=== PATIENT | female | born 1990 | race American Indian/Alaskan Native ===

== ENCOUNTER 2017-07-15 13:19 | Emergency (ER) | payer SELFPAY ==
--- NOTE | 2017-07-15 14:12 | Emergency Department Report ---
Stated Complaint: KNOT ON LEFT SIDE BACK/PAIN Time Seen by Provider: 07/15/17 14:09 - HPI History of Present Illness: PT c/o painful knot to L side of back - ROS Review of Systems: +"nerves be really bad" + chills - Exam Physical Exam: PT looks well, non toxic. PT appears to have large lipoma to back - no warmth or erythema noted to skin MSE screening note: Focused history and physical exam performed. Due to findings the following was ordered: ED Disposition for MSE Condition: Stable
[2017-07-15 14:13] VITALS: BP 128/81
[2017-07-15 15:06] LABS: Basophils % (Auto) 0.6 % (0.0-1.8); Eosinophils % (Auto) 1.4 % (0.0-4.3); Hematocrit 45.4 % (30.3-42.9); Hemoglobin 15.1 gm/dl (10.1-14.3); Mean Corpuscular HGB Conc 33 % (30-34); Mean Corpuscular Hemoglobin 34 pg (28-32); Mean Corpuscular Volume 101 fl (79-97); Platelet Count 321 K/mm3 (140-440); Red Blood Count 4.49 M/mm3 (3.65-5.03); Red Cell Distribution Width 13.7 % (13.2-15.2); White Blood Count 7.9 K/mm3 (4.5-11.0)
[2017-07-15 15:18] LABS: Alanine Aminotransferase 12 units/L (7-56); Albumin 4.7 g/dL (3.9-5); Albumin/Globulin Ratio 1.3 %; Alkaline Phosphatase 50 units/L (35-129); Anion Gap 19 mmol/L; BUN/Creatinine Ratio 13.33; Blood Urea Nitrogen 8 mg/dL (7-17); Calcium 9.8 mg/dL (8.4-10.2); Carbon Dioxide 26 mmol/L (22-30); Chloride 99.7 mmol/L (98-107); Glucose 96 mg/dL (65-100); Sodium 141 mmol/L (137-145); Total Protein 8.2 g/dL (6.3-8.2)
--- NOTE | 2017-07-15 17:11 | Emergency Department Report ---
- General Chief complaint: Skin/Abscess/Foreign Body Stated complaint: KNOT ON LEFT SIDE BACK/PAIN Time Seen by Provider: 07/15/17 14:09 Source: patient Mode of arrival: Ambulatory Limitations: No Limitations - History of Present Illness Initial comments: 27-year-old female past medical history none presents with complaint of 8 months of left-sided paraspinal soft mass. Patient states that it has been hurting which is why she came into the ER today. Denies fevers chills up or lower extremity paresthesias. Denies any abdominal pain. Patient is awake alert and oriented 3 not in acute distress. MD complaint: foreign body Onset/Timin -: month(s) Tetanus Up to Date: yes Location: back (left mid back) Severity: moderate Severity scale (0 -10): 7 Quality: aching, sharp Consistency: intermittent Improves with: none Worsens with: none Associated symptoms: denies other symptoms Treatments Prior to Arrival: none - Related Data Previous Rx's Medication Instructions Recorded Last Taken Type traMADol [Ultram 50 MG tab] 50 mg PO Q6HR PRN #10 tablet 06/17/16 Unknown Rx Acetaminophen/Codeine [Tylenol 1 tab PO Q6H PRN #12 tab 07/15/17 Unknown Rx /Codeine # 3 tab] Naproxen [Naprosyn TAB] 500 mg PO BID PRN #30 tablet 07/15/17 Unknown Rx Allergies Allergy/AdvReac Type Severity Reaction Status Date / Time No Known Allergies Allergy Verified 06/17/16 15:07 Abscess Boil HPI - HPI Chief Complaint: Skin/Abscess/Foreign Body Stated Complaint: KNOT ON LEFT SIDE BACK/PAIN Time Seen by Provider: 07/15/17 14:09 Home Medications: Previous Rx's Medication Instructions Recorded Last Taken Type traMADol [Ultram 50 MG tab] 50 mg PO Q6HR PRN #10 tablet 06/17/16 Unknown Rx Acetaminophen/Codeine [Tylenol 1 tab PO Q6H PRN #12 tab 07/15/17 Unknown Rx /Codeine # 3 tab] Naproxen [Naprosyn TAB] 500 mg PO BID PRN #30 tablet 07/15/17 Unknown Rx Allergies/Adverse Reactions: Allergies Allergy/AdvReac Type Severity Reaction Status Date / Time No Known Allergies Allergy Verified 06/17/16 15:07 ED Review of Systems ROS: Stated complaint: KNOT ON LEFT SIDE BACK/PAIN Other details as noted in HPI Constitutional: denies: chills, fever Eyes: denies: eye pain, eye discharge, vision change ENT: denies: ear pain, throat pain Respiratory: denies: cough, shortness of breath, wheezing Cardiovascular: denies: chest pain, palpitations Endocrine: no symptoms reported Gastrointestinal: denies: abdominal pain, nausea, diarrhea Genitourinary: denies: urgency, dysuria, discharge Musculoskeletal: as per HPI, back pain (left mid back pain). denies: joint swelling, arthralgia Skin: denies: rash, lesions Neurological: denies: headache, weakness, paresthesias Psychiatric: denies: anxiety, depression Hematological/Lymphatic: denies: easy bleeding, easy bruising ED Past Medical Hx - Past Medical History Previous Medical History?: Yes Additional medical history: vaginal delivery x 3 - Surgical History Past Surgical History?: No - Social History Smoking Status: Current Every Day Smoker Substance Use Type: Alcohol, Non Opiate Pain - Medications Home Medications: Home Medications Medication Instructions Recorded Confirmed Last Taken Type traMADol [Ultram 50 MG tab] 50 mg PO Q6HR PRN #10 tablet 06/17/16 Unknown Rx Acetaminophen/Codeine [Tylenol 1 tab PO Q6H PRN #12 tab 07/15/17 Unknown Rx /Codeine # 3 tab] Naproxen [Naprosyn TAB] 500 mg PO BID PRN #30 tablet 07/15/17 Unknown Rx ED Physical Exam - General Limitations: No Limitations General appearance: alert, in no apparent distress - Head Head exam: Present: atraumatic, normocephalic - Eye Eye exam: Present: normal appearance, PERRL, EOMI - ENT ENT exam: Present: mucous membranes moist - Neck Neck exam: Present: normal inspection - Respiratory Respiratory exam: Present: normal lung sounds bilaterally. Absent: respiratory distress - Cardiovascular Cardiovascular Exam: Present: regular rate, normal rhythm. Absent: systolic murmur, diastolic murmur, rubs, gallop - GI/Abdominal GI/Abdominal exam: Present: soft, normal bowel sounds - Extremities Exam Extremities exam: Present: normal inspection - Back Exam Back exam: Present: normal inspection, paraspinal tenderness (left sided paraspinal mass ~ 8-10Cm in diameter) - Neurological Exam Neurological exam: Present: alert, oriented X3, CN II-XII intact, normal gait - Psychiatric Psychiatric exam: Present: normal affect, normal mood - Skin Skin exam: Present: warm, dry, intact, normal color. Absent: rash ED Course Vital Signs 07/15/17 14:09 Temperature 98.7 F Pulse Rate 93 H Respiratory 20 Rate Blood Pressure 128/81 O2 Sat by Pulse 100 Oximetry ED Medical Decision Making - Lab Data Result diagrams: 07/15/17 14:26 07/15/17 14:26 - Medical Decision Making A/P: Left-sided paraspinal/subcutaneous lipoma 1-discussed with radiologist Dr. Beck 2-naproxen when necessary, Tylenol No. 3 when necessary 3-she has no cranial nerve deficits strength 5 out of 5 all extremities 4-pt referred to outpatient surgery and dermatology Critical care attestation.: If time is entered above; I have spent that time in minutes in the direct care of this critically ill patient, excluding procedure time. ED Disposition Clinical Impression: Lipoma of back Disposition: DC-01 TO HOME OR SELFCARE Is pt being admited?: No Does the pt Need Aspirin: No Condition: Stable Instructions: Lipoma (ED) Prescriptions: Acetaminophen/Codeine [Tylenol /Codeine # 3 tab] 1 tab PO Q6H PRN #12 tab PRN Reason: Pain Naproxen [Naprosyn TAB] 500 mg PO BID PRN #30 tablet PRN Reason: Pain Referrals: GUTIERREZ PURDY MD [Staff Physician] - 3-5 Days ZAIRA LESLIE MD [Staff Physician] - 3-5 Days [facility] [Provider Group] - 3-5 Days Forms: Accompanied Note, Work/School Release Form(ED) Time of Disposition: 18:40
[2017-07-15] MEDS: MORPHINE IV ONE (17:33)
[2017-07-15] MEDS: NACL 0.9% 1000 ML 1,000 ML IV ONE (17:33)
--- NOTE | 2017-07-15 18:17 | Cat Scan Report ---
FINAL REPORT PROCEDURE: CT THORACIC SPINE W CON TECHNIQUE: Computerized axial tomography of the thoracic spine was performed from lower cervical spine to the upper lumbar spine following the IV injection of iodinated nonionic contrast. HISTORY: left sided paraspinal mass, 10cm in diameter, hard COMPARISON: No prior studies are available for comparison. FINDINGS: The spine is unremarkable. No fracture or subluxation is seen. No lytic or blastic abnormalities are identified. Posterior elements appear intact. No evidence of paraspinal mass. No abnormal fluid collections are visualized. Only a portion of the cervical trachea was visualize which appears to be slightly deviated to the right. The cause of the deviation is not clear on this CT scan of the thoracic spine IMPRESSION: Cervical trachea appears to be deviated towards the right. The cause of the tracheal deviation is not clearly visualized. The entire trachea and neck are not included on this exam. No other abnormalities are identified. No paraspinal masses are identified. No focal abnormalities of the thoracic spine are seen.
[2017-07-15] MEDS: TORADOL IV ONE (18:30)
== END 2017-07-15 19:15 | disposition home or self-care (01) ==
LOC: ED 13:19
DX: D17.1 Benign lipomatous neoplasm of skin and subcutaneous tissue of trunk (principal); F17.200 Nicotine dependence, unspecified, uncomplicated
CPT/HCPCS: 36415; 72129; 80053; 84703; 85025; 96361; 96374; 96375; 99284; J1885; J2270; J7030